=== PATIENT | female | born 2005 | race Caucasian/White ===

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

== ENCOUNTER 2023-08-20 20:39 | Emergency (ER) | payer OTHER ==
[~2023-08-20] VITALS: Ht 157.5 cm; Wt 64.0 kg
[~2023-08-20 20:39] MED LIST: ALBU18HF12 IH
[2023-08-20 20:58] VITALS: TEMP 98.3
[2023-08-20 22:45] LABS: COVID AG,FIA SOURCE NASAL SWAB
[2023-08-20] MEDS ORDERED: PredniSONE 20 MG TABLET PO ONE (22:45)
[2023-08-20 23:14] LABS: INFLUENZA TYPE A NEGATIVE FOR TYPE A (NEGATIVE); INFLUENZA TYPE B NEGATIVE FOR TYPE B (NEGATIVE); SARS-COV2 (COVID) ANTIGEN,FIA Negative (Negative)
[2023-08-20] MEDS ORDERED: PRED-554 PO (23:38)
[2023-08-20 23:43] VITALS: BP 122/72; PULSE 90; RESP 18
== END 2023-08-20 23:44 | disposition home or self-care (01) ==
LOC: EMS 20:39
DX: J06.9 Acute upper respiratory infection, unspecified (principal); J45.901 Unspecified asthma with (acute) exacerbation; Z20.822 Contact with and (suspected) exposure to COVID-19
CPT/HCPCS: 99284; 71046; 87426; 87804; J7512

== ENCOUNTER 2024-01-09 13:40 | Emergency (ER) | payer OTHER ==
[~2024-01-09] VITALS: Ht 157.5 cm; Wt 56.8 kg
[~2024-01-09 13:40] MED LIST changes: +PRED-554 PO
[2024-01-09] MEDS ORDERED: NITR-75 PO (13:44)
[2024-01-09 13:49] VITALS: TEMP 98.5
[2024-01-09] MEDS: ACETAMINOPHEN/CODEINE 300-30 MG TABLET PO ONE (15:01)
[2024-01-09] MEDS: IBUPROFEN 600 MG TABLET PO ONE (15:01)
[2024-01-09 15:12] LABS: BASOPHILS % (AUTO) 0.7 % (0.0-2.0); EOSINOPHILS % (AUTO) 3.6 % (1.0-6.0); HEMATOCRIT 42.3 % (36-46); HEMOGLOBIN 14.3 g/dL (12.0-16.0); LYMPHOCYTES # (AUTO) 2.7 K/uL (1.0-4.8); MEAN CORPUSCULAR HEMOGLOBIN 29.8 pg (26.0-34.0); MEAN CORPUSCULAR HGB CONC 33.8 G/dL (31.0-37.0); MEAN CORPUSCULAR VOLUME 88 fL (80-100); MONOCYTES # (AUTO) 0.6 K/uL (0.1-1.0); MONOCYTES % (AUTO) 5.6 % (2.0-9.0); NEUTROPHILS # (AUTO) 6.7 K/uL (1.8-7.7); NEUTROPHILS % (AUTO) 64.1 % (40.0-70.0); PLATELET COUNT (AUTO) 267 K/uL (150-450); RED CELL DISTRIBUTION WIDTH 13.8 % (11.5-14.5); WHITE BLOOD COUNT (AUTO) 10.4 K/uL (4.5-11.0)
[2024-01-09 15:25] LABS: ANION GAP 11 mmol/L (8-16); CARBON DIOXIDE 26 mmol/L (22-29); CHLORIDE 101 mmol/L (98-107); CREATININE 0.74 mg/dL (0.60-1.30); GLOMERULAR FILTR. RATE CALC > 60 mL/min (>60); GLUCOSE,RANDOM 86 mg/dL (70-110); POTASSIUM 3.6 mmol/L (3.5-5.1); SODIUM SERUM 138 mmol/L (136-145); UREA NITROGEN, BLOOD 14 mg/dL (7-18)
[2024-01-09 15:31] LABS: ALANINE AMINOTRANSFERASE 18 U/L (12-78); ALBUMIN 3.8 g/dL (3.4-5.0); ALKALINE PHOSPHATASE 67 U/L (46-116); ASPARTATE AMINOTRANSFERASE 14 U/L (15-37); BILIRUBIN,TOTAL 0.2 mg/dL (0.1-1.0); LIPASE 37 U/L (16-77); TOTAL PROTEIN, SERUM 8.1 g/dL (6.4-8.2)
[2024-01-09 15:34] LABS: APPEARANCE,URINE CLEAR (CLEAR); BILIRUBIN,URINE NEGATIVE (NEGATIVE); COLOR,URINE LIGHT YELLOW (YELLOW); GLUCOSE, URINE (UA) NEGATIVE (NEGATIVE); KETONES,URINE NEGATIVE (NEGATIVE); LEUKOCYTE ESTERASE ,URINE NEGATIVE (NEGATIVE); NITRATE,URINE NEGATIVE (NEGATIVE); OCCULT BLOOD,URINE NEGATIVE (NEGATIVE); PH,URINE 6.5 (5.0-8.0); PROTEIN,URINE NEGATIVE (NEGATIVE); SPECIFIC GRAVITIY, URINE 1.008 (1.003-1.030); UROBILINOGEN,URINE <=1.0 mg/dL (<=1.0)
[2024-01-09 15:45] LABS: BACTERIA,URINE None Seen /HPF (None Seen); RBC,URINE None Seen /HPF (0-2); SQUAMOUS EPITHELIAL CELL,UR Rare /LPF (None Seen); WBC,URINE None Seen /HPF (0-5)
[2024-01-09] MEDS ORDERED: IBUP-1554 PO (18:08)
[2024-01-09] MEDS ORDERED: ACET-2080 PO (18:13)
[2024-01-09 18:17] VITALS: BP 119/68; PULSE 80; RESP 16
== END 2024-01-09 18:22 | disposition home or self-care (01) ==
LOC: EMS 13:40
DX: M54.50 Low back pain, unspecified (principal); J45.909 Unspecified asthma, uncomplicated; J18.9 Pneumonia, unspecified organism
CPT/HCPCS: 74176; 80053; 81001; 83690; 84703; 85025; 99284

== ENCOUNTER 2025-01-26 20:07 | Emergency (ER) | payer OTHER ==
[2025-01-25 23:20] VITALS: PULSE 88; RESP 16; O2SAT 100
[~2025-01-26] VITALS: Ht 160 cm; Wt 61.0 kg
[~2025-01-26 20:07] MED LIST changes: +ACET-2080 PO; +IBUP-1554 PO; +NITR-104 PO; -PRED-554 PO
[2025-01-26 20:27] VITALS: TEMP 98.2
[2025-01-26 20:55] LABS: COVID AG,FIA SOURCE NASAL SWAB
[2025-01-26 21:13] LABS: INFLUENZA TYPE A NEGATIVE FOR TYPE A (NEGATIVE); INFLUENZA TYPE B NEGATIVE FOR TYPE B (NEGATIVE); SARS-COV2 (COVID) ANTIGEN,FIA Negative (Negative)
[2025-01-26] MEDS: PredniSONE 20 MG TABLET PO ONE (22:06)
[2025-01-26] MEDS: IPRATROPIUM BROMIDE 0.5 MG/2.5 ML NEB SOLUTION NEB ONE (22:34)
[2025-01-26] MEDS: ALBUTEROL SULFATE 2.5 MG/0.5 ML 5 ML NEB SOLUTION NEB ONE (22:34)
[2025-01-26 22:35] VITALS: PULSE 71; RESP 18; O2SAT 99
[2025-01-26 23:30] VITALS: BP 107/58; PULSE 91; RESP 16; O2SAT 98
[2025-01-26] MEDS: ONDANSETRON 4 MG TABLET PO ONE (23:39)
[2025-01-26] MEDS ORDERED: PRED-554 PO (23:55)
[2025-01-26] MEDS ORDERED: BUDE10.27 IH (23:55)
[2025-01-27] MEDS ORDERED: ONDA-104 PO (00:01)
== END 2025-01-27 00:21 | disposition home or self-care (01) ==
LOC: EMS 20:11
DX: J45.901 Unspecified asthma with (acute) exacerbation (principal); R09.81 Nasal congestion; Z20.822 Contact with and (suspected) exposure to COVID-19
CPT/HCPCS: 99284; 71045; 87426; 87804; 94640; 94060; Q0162; J7512; 94644

== ENCOUNTER 2025-09-26 15:42 | Emergency (ER) | payer SELFPAY ==
[~2025-09-26] VITALS: Ht 160 cm; Wt 59.1 kg
[~2025-09-26 15:42] MED LIST changes: +BUDE10.27 IH; +ONDA-104 PO; +PRED-554 PO
[2025-09-26 15:54] VITALS: BP 106/70; PULSE 89; RESP 16; TEMP 98.2; O2SAT 100
[2025-09-26] MEDS: BUDESONIDE/FORMOTEROL FUMARATE 80-4.5 MCG/PUFF 10.2 GM INHALER IH ONE (17:20)
== END 2025-09-26 17:22 | disposition home or self-care (01) ==
LOC: EMS 15:42
DX: J45.909 Unspecified asthma, uncomplicated (principal); Z79.899 Other long term (current) drug therapy; Z76.0 Encounter for issue of repeat prescription
CPT/HCPCS: 94640; 99283